=== PATIENT | female | born 1965 | race Caucasian/White ===

== ENCOUNTER → 2021-09-11 | Outpatient (REF) | LOC: M PLAIMG 14:28 | PROVIDERS: ATTEND Internal Medicine | DX: S69.92XA Unspecified injury of left wrist, hand and finger(s), initial encounter (principal); X58.XXXA Exposure to other specified factors, initial encounter; Y92.9 Unspecified place or not applicable; Y93.9 Activity, unspecified; Y99.9 Unspecified external cause status ==